=== PATIENT | male | born 1985 | race Caucasian/White ===

== ENCOUNTER 2018-04-25 20:02 | Emergency (ER) | payer OTHER ==
[2018-04-25] MEDS ORDERED: Tetan/Diph/Pertus SYR(Tdap)* 0.5 ML SYR(BOOSTRIX) use SYR IM ONE (20:06)
[2018-04-25 20:16] VITALS: BP 132/82
--- NOTE | 2018-04-25 20:20 | UC ---
Laceration HPI - HPI Summary HPI Summary: 33 yo male presents with laceration to left hand sustained about 15 min [employer]. He tells me that he was chipping paint with a putty knife when it slipped and lacerated his left hand. Last tetanus was around 5 years ago and he does not want one today. - History Of Current Complaint Chief Complaint: UCLaceration Stated Complaint: HAND LACERATION Time Seen by Provider: 04/25/18 20:19 Hx Obtained From: Patient Laceration Location: Hand Mechanism Of Injury: Sharp Trauma Onset/Duration: Sudden Onset Severity: Severe Pain Intensity: 8 Pain Scale Used: 0-10 Numeric - Allergies/Home Medications Allergies/Adverse Reactions: Allergies Allergy/AdvReac Type Severity Reaction Status Date / Time No Known Allergies Allergy Verified 04/25/18 20:16 Home Medications: Home Medications Levothyroxine TAB* [Synthroid 25 MCG TAB*] 37.5 mcg PO DAILY 04/25/18 [History Confirmed 04/25/18] PMH/Surg Hx/FS Hx/Imm Hx Endocrine History: Hypothyroidism - Surgical History Surgical History: Yes Surgery Procedure, Year, and Place: appy age 18 - Family History Known Family History: Positive: None - Social History Occupation: Employed Full-time Lives: With Family Alcohol Use: Rare Substance Use Type: None Smoking Status (MU): Current Every Day Smoker Review of Systems Constitutional: Negative Skin: Negative Respiratory: Negative Cardiovascular: Negative Neurovascular: Negative Neurological: Negative Psychological: Negative All Other Systems Reviewed And Are Negative: Yes Physical Exam - Summary Physical Exam Summary: GENERAL: NAD. WDWN. No pain distress. SKIN: 3.2cm linear laceration horizontally over the 1st MCP. Subcutaneous tissue exposed. No tendon involvement. NECK: Supple. Nontender. No lymphadenopathy. CHEST: No accessory muscle use. Breathing comfortably and in no distress. CV: Pulses intact. Cap refill <2seconds MSK: FROM without pain all fingers NEURO: Alert. PSYCH: Age appropriate behavior. Triage Information Reviewed: Yes Vital Signs: Initial Vital Signs Temp 97.9 F 04/25/18 20:10 Pulse 90 04/25/18 20:10 Resp 15 04/25/18 20:10 BP 132/82 04/25/18 20:10 Pulse Ox 100 04/25/18 20:10 Vital Signs Reviewed: Yes Laceration Repair - Laceration Repair 1 Description: Linear Laceration Size After Repair: Length (cm) - 3.2 Anesthesia Used: 2.0% Lido Irrigation With Pressure Irrigation Device: Yes Closure Material: Sutures - SEVEN Closure Method: Single Layer Suture Of: Skin Suture Type: Prolene Laceration Course/Dx - Course/Dx Course Of Treatment: The procedure was explained to the pt and all questions were answered. A time out was performed, witnessed, and signed. The area was irrigated with 250mL sterile saline. 2mL of 2% lidocaine without epi was administered and good anesthetization was achieved. In the usual sterile fashion , FIVE 5-0 prolene and TWO 6-0 prolene interrupted sutures were placed. The wound was bandaged with telfa. Pt tolerated procedure well. - Differential Dx - Laceration/Wound Provider Diagnoses: Laceration left hand Discharge - Sign-Out/Discharge Documenting (check all that apply): Patient Departure All imaging exams completed and their final reports reviewed: No Studies - Discharge Plan Condition: Stable Disposition: HOME Patient Education Materials: Care For Your Stitches (ED), Laceration (ED) Referrals: No Primary Care Phys,NOPCP [Primary Care Provider] - Additional Instructions: 1) Please keep the area bandaged, clean, dry, and intact for the next 24- 48hours. 2) If you develop a fever, colored or thick discharge, increased pain or swelling - please call your PCP or go to the ED. 3) Please return in 10 days to have your SEVEN sutures removed. - Billing Disposition and Condition Condition: STABLE Disposition: Home
[2018-04-25] MEDS ORDERED: Lidocaine 2% PF * 5 ML VIAL INJ ONE (20:23)
== END 2018-04-25 21:14 | disposition home or self-care (01) ==
LOC: UCEAST 20:02
DX: S61.412A Laceration without foreign body of left hand, initial encounter (principal); E03.9 Hypothyroidism, unspecified; F17.210 Nicotine dependence, cigarettes, uncomplicated; W26.0XXA Contact with knife, initial encounter; Y93.H3 Activity, building and construction; Y92.9 Unspecified place or not applicable
CPT/HCPCS: 12002; 90715; 99211; G0463